=== PATIENT | male | born 1975 | race Caucasian/White ===

== ENCOUNTER 2019-05-22 23:43 | Emergency (ER) | payer MEDICAID, OTHER ==
[2019-05-22 23:49] VITALS: BP 137/80
--- NOTE | 2019-05-23 00:11 | NUR ---
PT HAS INSECT LARVAE ALIVE IN PLASTIC CONTAINER, STATES IT CAME OFF HIS FACE WHEN HE PICKED A SCAB OFF HIS CHIN. ERP AT BS NOW.
--- NOTE | 2019-05-23 01:05 | NUR ---
PT AMBULATED TO US WITH TECH.
== END 2019-05-23 02:16 | disposition home or self-care (01) ==
LOC: ED 05-23 01:00
DX: L98.9 Disorder of the skin and subcutaneous tissue, unspecified (principal)
CPT/HCPCS: 76536; 99284

== ENCOUNTER 2019-06-04 21:22 | Emergency (ER) | payer MEDICAID ==
[~2019-06-04] VITALS: Ht 185.4 cm; Wt 92.0 kg
[2019-06-04 21:25] VITALS: BP 108/70
--- NOTE | 2019-06-04 22:44 | NUR ---
DC EDUCATION PROVIDED, PT DEMONSTRATES UNDERSTANDING. PT AMBULATED STEADILY TO DC WITH RN AND FRIEND
== END 2019-06-04 22:46 | disposition home or self-care (01) ==
LOC: ED 22:40
DX: S00.86XA Insect bite (nonvenomous) of other part of head, initial encounter (principal); W57.XXXA Bitten or stung by nonvenomous insect and other nonvenomous arthropods, initial encounter; Y93.89 Activity, other specified; Y92.89 Other specified places as the place of occurrence of the external cause; Y99.8 Other external cause status
CPT/HCPCS: 99283; 99284

== ENCOUNTER 2019-11-12 02:29 | Emergency (ER) | payer MEDICAID ==
[~2019-11-12] VITALS: Ht 182.9 cm; Wt 203.0 kg
[2019-11-12 02:31] VITALS: BP 109/84
[2019-11-12] MEDS ORDERED: DIPH,PERTUSS(ACELL),TET VAC/PF 0.5 ML IM-VACC ONE ×2 (02:51→03:00)
--- NOTE | 2019-11-12 02:55 | NUR ---
Break RN: patient back from CT scan. animal laboratory technician at bedside for wound irrigation.
--- NOTE | 2019-11-12 03:15 | NUR ---
PA at bedside for suturing.
--- NOTE | 2019-11-12 03:51 | NUR ---
PT UP FOR DC. PT NOT IN ROOM. REG STATES PT LEFT WITH A STEADY GAIT A FEW MINUTES AGO.
== END 2019-11-12 03:54 | disposition left against medical advice (07) ==
LOC: ED 03:44
DX: S01.81XA Laceration without foreign body of other part of head, initial encounter (principal); F10.229 Alcohol dependence with intoxication, unspecified; F17.200 Nicotine dependence, unspecified, uncomplicated; W01.0XXA Fall on same level from slipping, tripping and stumbling without subsequent striking against object, initial encounter; Y93.89 Activity, other specified; Y92.488 Other paved roadways as the place of occurrence of the external cause; Y99.8 Other external cause status; Y90.9 Presence of alcohol in blood, level not specified
CPT/HCPCS: 12052; 70450; 90471; 90715; 99284

== ENCOUNTER 2019-12-22 08:36 | Emergency (ER) | payer MEDICAID ==
[~2019-12-22] VITALS: Ht 182.9 cm; Wt 92.0 kg
[2019-12-22 08:38] VITALS: BP 120/84
== END 2019-12-22 09:14 | disposition home or self-care (01) ==
LOC: ED 09:13
DX: L50.6 Contact urticaria (principal); L01.01 Non-bullous impetigo
CPT/HCPCS: 99283

== ENCOUNTER 2020-02-25 09:54 | Emergency (ER) | payer MEDICAID ==
[~2020-02-25] VITALS: Ht 182.9 cm; Wt 93.5 kg
--- NOTE | 2020-02-25 10:30 | NUR ---
Assumed care of patient. On Tuesday, patient was working with [employer] C/O red, itchy skin across face, chest, ABD, and BUE. Left sclera red. Patient used calamine, hydroxyzine, and benadryl with minimal relief. Denies SOB, CP, dizziness, [place], and N/V. NAD. Placed on NIBP and pulse ox. Will continue to monitor.
[2020-02-25] MEDS ORDERED: NAPR250T6 PO (10:33)
[2020-02-25] MEDS ORDERED: DIPHENHYDRAMINE 25 MG CAPSULE PO ONE (11:00)
[2020-02-25] MEDS ORDERED: FAMOTIDINE 20 MG TABLET PO ONE (11:00)
[2020-02-25] MEDS ORDERED: FAMOTIDINE 20 MG TABLET ONE (11:27)
[2020-02-25] MEDS ORDERED: DIPHENHYDRAMINE 25 MG CAPSULE ONE (11:27)
[2020-02-25 11:39] VITALS: BP 100/61
--- NOTE | 2020-02-25 11:48 | NUR ---
Patient/Caregiver given discharge instructions and they have confirmed that they understand the instructions. Patient ambulatory with steady gait.
== END 2020-02-25 11:50 | disposition home or self-care (01) ==
LOC: ED 11:38
DX: L24.9 Irritant contact dermatitis, unspecified cause (principal); L23.9 Allergic contact dermatitis, unspecified cause; K04.7 Periapical abscess without sinus; L01.01 Non-bullous impetigo; R22.0 Localized swelling, mass and lump, head; R00.0 Tachycardia, unspecified
CPT/HCPCS: 99284; J7512; Q0163